=== PATIENT | female | born 1950 | race Caucasian/White ===

== ENCOUNTER → 2020-07-03 | Outpatient (CLI) | payer MEDICARE | LOC: ECHO 06-12 11:00 | DX: R06.02 Shortness of breath (principal); R60.1 Generalized edema; I10 Essential (primary) hypertension | CPT/HCPCS: ECHO; 93306 ==

== ENCOUNTER → 2020-08-09 | Outpatient (CLI) | payer MEDICARE | LOC: HEART 5 11:05 | DX: I27.20 Pulmonary hypertension, unspecified (principal) | CPT/HCPCS: 94060; 94729 ==

== ENCOUNTER → 2020-08-22 | Outpatient (CLI) | payer MEDICARE | LOC: RAD 15:37 | DX: I27.20 Pulmonary hypertension, unspecified (principal); G47.33 Obstructive sleep apnea (adult) (pediatric); J44.9 Chronic obstructive pulmonary disease, unspecified | CPT/HCPCS: 36600; 71046; 82803 ==

== ENCOUNTER → 2021-10-13 | Outpatient (CLI) | payer MEDICARE | LOC: WCC 07:17 | DX: L97.212 Non-pressure chronic ulcer of right calf with fat layer exposed (principal); I89.0 Lymphedema, not elsewhere classified; I10 Essential (primary) hypertension; J44.9 Chronic obstructive pulmonary disease, unspecified; M79.604 Pain in right leg; R60.0 Localized edema | CPT/HCPCS: 97597; 97598 ==

== ENCOUNTER → 2021-10-21 | Outpatient (CLI) | payer MEDICARE | LOC: WCC 07:17 | DX: I89.0 Lymphedema, not elsewhere classified (principal); I87.2 Venous insufficiency (chronic) (peripheral); L97.212 Non-pressure chronic ulcer of right calf with fat layer exposed; J44.9 Chronic obstructive pulmonary disease, unspecified; I10 Essential (primary) hypertension; M79.604 Pain in right leg; R60.0 Localized edema; Z88.1 Allergy status to other antibiotic agents; Z79.899 Other long term (current) drug therapy ==

== ENCOUNTER → 2021-11-04 | Outpatient (CLI) | payer MEDICARE | LOC: EXRD 12:55 → US 12:55 → EXRD 13:00 | DX: L97.212 Non-pressure chronic ulcer of right calf with fat layer exposed (principal); I89.0 Lymphedema, not elsewhere classified; I10 Essential (primary) hypertension; J44.9 Chronic obstructive pulmonary disease, unspecified; M79.604 Pain in right leg; R60.0 Localized edema | CPT/HCPCS: 93922; 93925; 93970 ==

== ENCOUNTER → 2021-11-05 | Outpatient (CLI) | payer MEDICARE | LOC: WCC 08:10 | DX: I87.2 Venous insufficiency (chronic) (peripheral) (principal); L97.219 Non-pressure chronic ulcer of right calf with unspecified severity; J44.9 Chronic obstructive pulmonary disease, unspecified; I10 Essential (primary) hypertension; R60.0 Localized edema | CPT/HCPCS: G0463 ==

== ENCOUNTER → 2021-11-12 | Outpatient (CLI) | payer MEDICARE | LOC: WCC 08:06 | DX: I89.0 Lymphedema, not elsewhere classified (principal); I87.2 Venous insufficiency (chronic) (peripheral); L97.212 Non-pressure chronic ulcer of right calf with fat layer exposed; J44.9 Chronic obstructive pulmonary disease, unspecified; I10 Essential (primary) hypertension; M79.604 Pain in right leg; R60.0 Localized edema; Z88.1 Allergy status to other antibiotic agents | CPT/HCPCS: G0463 ==

== ENCOUNTER → 2021-11-25 | Outpatient (CLI) | payer MEDICARE | LOC: WCC 08:38 | DX: I87.2 Venous insufficiency (chronic) (peripheral) (principal); L97.812 Non-pressure chronic ulcer of other part of right lower leg with fat layer exposed; I10 Essential (primary) hypertension; J44.9 Chronic obstructive pulmonary disease, unspecified | CPT/HCPCS: G0463 ==

== ENCOUNTER → 2021-12-10 | Outpatient (CLI) | payer MEDICARE | LOC: WCC 07:44 | DX: L97.212 Non-pressure chronic ulcer of right calf with fat layer exposed (principal); I89.0 Lymphedema, not elsewhere classified; J44.9 Chronic obstructive pulmonary disease, unspecified; I10 Essential (primary) hypertension; M79.604 Pain in right leg | CPT/HCPCS: G0463 ==